=== PATIENT | female | born 1960 | race Caucasian/White ===

== ENCOUNTER 2016-08-29 06:53 | Emergency (ER) | payer OTHER ==
[~2016-08-29] VITALS: Ht 162.6 cm; Wt 112.0 kg
--- NOTE | 2016-08-29 08:22 | ED GI/GU/ABDOMINAL COMPLAINT ---
History of Present Illness General Chief Complaint: Nausea, Vomiting, Diarrhea Stated Complaint: NAUSEA,VOMITING,DIARRHEA X3DAYS,HX ITP Source: patient Exam Limitations: no limitations Vital Signs & Intake/Output Vital Signs & Intake/Output Vital Signs Date Time Temp Pulse Resp B/P B/P Pulse O2 O2 Flow FiO2 Mean Ox Delivery Rate 08/30 935 97.5 91 18 141/81 98 Room Air 08/29 0757 Room Air 08/29 0722 99.0 112 16 149/89 95 Room Air Allergies Coded Allergies: Sulfa (Sulfonamide Antibiotics) (Intermediate, RASH 08/29/16) adhesive tape (Intermediate, RASH 08/29/16) Reconcile Medications Amlodipine Besylate 10 MG TABLET 1 TAB PO DAILY HEART (Reported) Chlorpheniramine Maleate (Allergy-Time) 4 MG TABLET 1 TAB PO DAILY ALLERGIES (Reported) Docusate Sodium (Stool Softener) 100 MG CAPSULE 1 CAP PO TID CONSTIPATION ( Reported) Fluoxetine HCl 20 MG CAPSULE 1 CAP PO DAILY MENTAL HEALTH (Reported) Ibuprofen 200 MG TABLET 1 TAB PO DAILY PRN PAIN (Reported) Ibuprofen/Diphenhydramine Cit (Ibuprofen Pm Caplet) 200 MG-38 MG TABLET 1 TAB PO QPM PRN SLEEP (Reported) Insulin Aspart (Novolog) (Unknown Strength) VIAL (Unknown Dose) SC SEE SLIDING SCALE DIABETES (Reported) Insulin Detemir (Levemir Flextouch) 100 UNIT/ML (3 ML) INSULN.PEN 45 U SC QPM DIABETES (Reported) Levothyroxine Sodium 175 MCG TABLET 1 TAB PO DAILY AC THYROID (Reported) Lisinopril 40 MG TABLET 1 TAB PO DAILY HEART (Reported) Ondansetron (Zofran Odt) 4 MG TAB.RAPDIS 1 TAB SL TID PRN NAUSEA/VOMITING ( Reported) Simvastatin (Simvastatin*) 40 MG TABLET 1 TAB PO QPM CHOLESTEROL (Reported) Triage Note: PT TO ED C/O N/V/D X3 DAYS AND NOW GETTING A MIGRAINE HEADACHE. REPORTS SHE HAS A HX OF ITP. AND LAST CHEMO WAS IN [facility]. DENIES ANY BLOOD. STATES SHE FEELS HER ABDOMEN CRAMPING AND HAS BODY ACHES. Triage Nurses Notes Reviewed? yes ? n Is pt currently ? No HPI: Patient presents for evaluation of abrupt onset of nausea vomiting and diarrhea that began about 3 days ago. Patient states her was sick with "stomach flu" but is feeling better. Patient is now suffering from multiple episodes of nonbloody nonbilious vomiting and nonbloody non-melenic diarrhea. She has chronic nausea and tried Zofran at home without relief. She states that she took a fingerstick blood glucose level (patient has insulin-dependent diabetes) and it was greater than 300. She took insulin for this. In addition she is currently experiencing a bilateral occipital headache that radiates up into the "crown" of the head and into both temples. She states that she has had similar headaches in the past, the last being about 6 months ago associated with a sinus infection. Patient states she is visiting [place] from [place], traveling in about 1 month ago. Nothing seems to have improved her symptoms. Past History Travel History Traveled to [facility] past 21 day No Medical History Any Pertinent Medical History? see below for history Cardiovascular: hyperlipidemia Endocrine: diabetes, hypothyroidism Surgical History Surgical History: non-contributory Psychosocial History What is your primary language Lithuanian Tobacco Use: Never used Family History Hx Contributory? No Review of Systems Review of Systems Constitutional: Reports: no symptoms. EENTM: Reports: no symptoms. Respiratory: Reports: no symptoms. Cardiovascular: Reports: no symptoms. GI: Reports: see HPI. Genitourinary: Reports: no symptoms. Musculoskeletal: Reports: no symptoms. Skin: Reports: no symptoms. Neurological/Psychological: Reports: no symptoms. Hematologic/Endocrine: Reports: no symptoms. Immunologic/Allergic: Reports: no symptoms. All Other Systems: Reviewed and Negative Physical Exam Physical Exam Gastrointestinal: SEE BELOW Comments: Gen.: Well-nourished, well-developed, no acute respiratory distress. Head: Normocephalic, atraumatic. Eyes: Normal inspection bilaterally Ears: Normal inspection bilaterally Nose: Normal inspection Throat/mouth : Moist mucosa Neck: Supple, full range of motion, no goiter Heart: Regular rate and rhythm, no murmurs rubs or gallops Lungs: Clear to auscultation bilaterally with normal air entry Chest: Nontender Back: Normal range of motion Abdomen: Soft, mild right upper quadrant abdominal tenderness without rebound or guarding, nondistended, normal bowel sounds Extremities: Normal range of motion grossly, equal radial pulses, no cyanosis clubbing or edema Neurologic: Cranial nerves grossly intact, speech is clear Skin: warm and dry Psychiatric: Calm, cooperative, no apparent delusions or hallucinations Core Measures ACS in differential dx? No Severe Sepsis Present: No Septic Shock Present: No Progress Differential Diagnosis: gastroenteritis, colitis, dehydration, electrolyte abnormality, thrombocytopenia Plan of Care: Orders Procedure Date/time Status URINALYSIS 08/29 821 Complete LIPASE 08/29 821 Complete HUMAN BETA HCG SCREEN 08/29 821 Complete COMPREHENSIVE METABOLIC PANEL 08/29 821 Complete CBC WITHOUT DIFFERENTIAL 08/29 821 Complete Laboratory Tests 08/29/16 0940: Urine Color YEL, Urine Clarity CLEAR, Urine pH 6.0, Ur Specific [place] 1.025, Urine Protein >=300 H, Urine Ketones NEG, Urine Nitrite NEG, Urine Bilirubin NEG, Urine Urobilinogen 0.2, Ur Leukocyte Esterase NEG, Ur Microscopic SEDIMENT EXAMINED, Urine RBC 1-3, Urine WBC RARE, Ur Epithelial Cells MOD H, Urine Bacteria FEW H, Hyaline Casts RARE H, Urine Hemoglobin MOD H, Urine Glucose > =1000 H 08/29/16 0825: Anion Gap 12, Estimated GFR 47 L, BUN/Creatinine Ratio 19.2, Glucose 352 H, Calcium 9.3, Total Bilirubin 0.5, AST 19, ALT 20, Alkaline Phosphatase 107, Total Protein 6.5, Albumin 3.9, Globulin 2.6, Albumin/Globulin Ratio 1.5, Lipase 53, Total Beta HCG NEGATIVE, CBC w Diff NO MAN DIFF REQ, RBC 4.71, MCV 82.2, MCH 27.4, RDW 13.7, MPV 10.6 H, Gran % 77.1 H, Lymphocytes % 15.8 L, Monocytes % 4.7, Eosinophils % 2.0, Basophils % 0.4, Absolute Granulocytes 8.6 H, Absolute Lymphocytes 1.8, Absolute Monocytes 0.5, Absolute Eosinophils 0.2, Absolute Basophils 0, PUBS MCHC 33.3 Initial ED EKG: none Comments: 08/29/2016 9:27:35 AM bryan is beginning to feel better although she states her stomach still feels "a little queasy". I will order additional fluids and consider second dose of Phenergan if necessary. At this point I don't feel imaging studies would be beneficial. 08/29/2016 10:32:25 AM bryan is feeling much better with no further "queasiness". She feels good enough to go home. Plan symptomatic care. Although the patient presented hyperglycemic with a decreased bicarbonate, she is not spilling ketones into the urine and her anion gap is normal, so I doubt DKA. The low bicarbonate is likely due to GI losses. I've notified the patient of these findings and she states that she is familiar with DKA. She has a baseline of Lantus at night but does a sliding scale during the day. She is capable of monitoring her sugar levels and treating. Departure Departure Disposition: HOME OR SELF CARE Condition: Stable Clinical Impression Primary Impression: Viral gastroenteritis Secondary Impressions: Hyperglycemia, Insulin dependent diabetes mellitus Referrals: UNKNOWN (PCP/Family) Additional Instructions: Continue your Zofran as needed for nausea or vomiting and add Phenergan as discussed (she may alternate these 2 medications every 3 hours if needed). Maintain a good fluid intake including Gatorade or Powerade for the electrolytes and carbohydrates. As your nausea and diarrhea resolved you may advance her diet to normal. Follow-up with your primary care physician or return to the emergency department in 48 hours if not improving. Return to the emergency department immediately if any concerns or sudden worsening. Please note that there might be incidental findings in your evaluation that are unrelated to the current emergency department visit. Please notify your primary care doctor about this emergency department visit in order to obtain and review all of the testing performed so that these incidental findings can be monitored as needed. If you had an x-ray performed, please understand that some fractures may not be seen on the initial set of x-rays. If your symptoms persist you might need a repeat set of x-rays to check for such a fracture. If you had a laceration evaluated, please understand that foreign bodies such as glass or wood may not be visible to the naked eye or on plain x-rays. If the wound becomes red, swollen, increasingly more painful or if there is any drainage from the wound, please have it reevaluated by a physician for the possibility of a retained foreign body. Thank you for choosing the [facility] Emergency Department for your care. It was a pleasure to serve you today. Jairon Currie M.D. [facility] Departure Forms: Customer Survey General Discharge Information
[2016-08-29 08:33] LABS: ABSOLUTE BASOPHIL COUNT 0 /CUMM (0.0-0.2); ABSOLUTE EOSINOPHIL COUNT 0.2 /CUMM (0.0-0.7); ABSOLUTE GRANULOCYTE CT 8.6 /CUMM (1.4-6.5); ABSOLUTE LYMPH COUNT 1.8 /CUMM (1.2-3.4); ABSOLUTE MONOCYTE COUNT 0.5 /CUMM (0.10-0.60); BASOPHIL % 0.4 % (0.0-2.0); GRANULOCYTE % 77.1 % (42.2-75.2); HEMATOCRIT 38.7 % (37-47); MEAN CORPUSCULAR HGB 27.4 PG (27.0-31.0); MEAN CORPUSCULAR HGB CONC 33.3 G/DL (33.0-37.0); MEAN CORPUSCULAR VOLUME 82.2 FL (81.0-99.0); MEAN PLATELET VOLUME 10.6 FL (7.4-10.4); RBC DISTRIBUTION WIDTH 13.7 % (11.5-14.5); RED BLOOD CELL CT 4.71 /CUMM (4.20-5.40); WHITE BLOOD CELL COUNT 11.1 /CUMM (4.8-10.8)
[2016-08-29] MEDS ORDERED: SIMVASTATIN40 M1 PO (08:48)
[2016-08-29] MEDS ORDERED: LISINOPRIL40 M1 PO (08:49)
[2016-08-29] MEDS ORDERED: FLUOXETINE HCL20 M2 PO (08:49)
[2016-08-29] MEDS ORDERED: LEVEMIR FL100 UNIT/1 SC (08:50)
[2016-08-29] MEDS ORDERED: ZOFRAN ODT4 M1 SL (08:50)
[2016-08-29] MEDS ORDERED: AMLODIPINE BESY10 M1 PO (08:50)
[2016-08-29] MEDS ORDERED: LEVOTHYROXINE175 MCG PO (08:50)
[2016-08-29] MEDS ORDERED: NOVOLOG100 UNIT/2 SC (08:51)
[2016-08-29] MEDS ORDERED: ALLERGY-TIME4 MG PO (08:52)
[2016-08-29] MEDS ORDERED: STOOL SOFTENER100 M3 PO (08:52)
[2016-08-29] MEDS ORDERED: IBUPROFEN PM C1 EACH PO (08:53)
[2016-08-29] MEDS ORDERED: IBUPROFEN200 M2 PO (08:53)
[2016-08-29 08:54] LABS: PLATELET COUNT 92 /CUMM (130-400)
[2016-08-29] MEDS ORDERED: PROMETHAZINE12.5 M2 PO (11:07)
[2016-08-29 11:16] VITALS: BP 157/85
== END 2016-08-29 11:16 ==
LOC: ERH 06:53
PROVIDERS: Emergency Medicine
DX: K52.9 Noninfective gastroenteritis and colitis, unspecified (principal); E10.65 Type 1 diabetes mellitus with hyperglycemia
CPT/HCPCS: 81001; 96361; 96365; J2550